=== PATIENT | female | born 1980 ===

== ENCOUNTER 2020-06-15 10:48 | Observation (INO) ==
[~2020-06-15 10:48] MED LIST: Clindamycin 900 MG/D5W BAG IVPB ONE; NS 0.9% 1000 ml BAG 1,000 ML IV SCH; NS 0.9% 500 ml BAG 500 ML IV ONE; Ondansetron 4 mg VIAL 2 MG/ML 2 ml VIAL IV ONE; oxyCODONE SR 10 mg TAB PO ONE
[2020-06-15 11:30] LABS: ABS Eosinophils 0.1 10^3/ul (0-0.6); ABS Lymphocytes 1.5 10^3/ul (1.0-4.8); ABS Monocytes 0.4 10^3/ul (0-0.8); ABS Neutrophils 1.1 10^3/ul (1.5-7.7); Eosinophil % 2.2 %; Hematocrit 36 % (35-47); Hemoglobin 11.9 g/dL (12.0-16.0); Lymphocyte % 48.9 %; Mean Corpuscular HGB Conc 33 g/dL (31-36); Mean Corpuscular Hemoglobin 31 pg (27-31); Mean Corpuscular Volume 93 fL (80-97); Mean Platelet Volume 8.9 fL (7.4-10.4); Nucleated Red Blood Cells % 0.2; Platelet Count 240 10^3/uL (150-450); Red Blood Count 3.84 10^6 /uL (3.70-4.87); Red Cell Distribution Width 14 % (10-15); White Blood Count 3.1 10^3/uL (3.5-10.8)
[2020-06-15] MEDS ORDERED: oxyCODONE SR 10 mg TAB ONE (11:34)
[2020-06-15] MEDS ORDERED: Ondansetron 4 mg VIAL 2 MG/ML 2 ml VIAL ONE (11:35)
[2020-06-15 12:01] LABS: Activated Partial Thrombo Time 24.3 seconds (26.0-38.0); INR 1.12 (0.82-1.09)
[2020-06-15 12:33] LABS: HCG Pregnancy < 0.60 mIU/mL
[2020-06-15 12:43] LABS: Anion Gap 5 mmol/L (2-11); BUN/Creatinine Ratio 12.5 (8-20); Blood Urea Nitrogen 12 mg/dL (6-24); CO2 Carbon Dioxide 25 mmol/L (22-32); Calcium 8.8 mg/dL (8.6-10.3); Chloride 109 mmol/L (101-111); EGFR African American 78.7 (>60); Glucose 85 mg/dL (70-100); Potassium 3.9 mmol/L (3.5-5.0); Sodium 139 mmol/L (135-145)
[2020-06-15] MEDS ORDERED: Iohexol 350 (CONTRAST) 200 ML MDV IV ONE ×2 (13:02→14:28)
[2020-06-15] MEDS ORDERED: Lidocaine 1% VIAL 10 MG/ML VIAL ONE (13:02)
[2020-06-15] MEDS ORDERED: Heparin 2 UNITS/ML 1000 mls 2,000 ML IV ONE (13:02)
[2020-06-15] MEDS ORDERED: fentaNYL 100 mcg/2 ml 50 MCG/ML VIAL ONE ×2 (13:16→14:20)
[2020-06-15] MEDS ORDERED: Midazolam 5 mg/5 ml VIAL 1 mg/ml 5 ml VIAL (5 mg) ONE (13:16)
[2020-06-15] MEDS ORDERED: nitroGLYCERIN DRIP 25,000 MCG/250 ML BTL ONE (13:19)
[2020-06-15] MEDS ORDERED: NS 0.9% 1000 ml BAG 1,000 ML IVPB SCH (15:00)
[2020-06-15] MEDS ORDERED: HYDROmorphone PCA* 20 MG/20 ML in PREMIX PCA SCH (15:00)
[2020-06-15] MEDS ORDERED: HYDROmorphone 1 MG/1 ML SYRINGE ONE (15:21)
[2020-06-15] MEDS ORDERED: Ondansetron 4 mg VIAL 2 MG/ML 2 ml VIAL IV SCH (18:00)
[2020-06-15] MEDS: Ondansetron 4 mg VIAL 2 MG/ML 2 ml VIAL IV SCH (19:47)
[2020-06-16] MEDS: Ondansetron 4 mg VIAL 2 MG/ML 2 ml VIAL IV SCH ×2 (03:29→08:36)
[2020-06-16 08:01] VITALS: BP 127/69
[2020-06-16] MEDS ORDERED: diPHENhydraMINE 25 mg TAB PO PRN (08:19)
[2020-06-16] MEDS ORDERED: HYDROcodone/ACETAMIN 5/325 mg TAB PO PRN (08:43)
[2020-06-16] MEDS ORDERED: Ketorolac 10 mg TAB (NF) PO SCH (14:00)
[2020-06-18] MEDS ORDERED: Scopolamine PATCH Remove NOTE PATCH OFF ONE (12:00)
== END 2020-06-16 12:32 | disposition home or self-care (01) ==
LOC: CHICATH 10:48 → SSU 10:48
PROVIDERS: ADMIT Radiology Diagnostic Radiology; ATTEND Hospitalist
PROC: ANG.UFE (2020-06-15 12:10)